=== PATIENT | male | born 1940 | race Caucasian/White ===

== ENCOUNTER 2020-07-02 08:10 | Inpatient (IN) | payer MEDICARE ==
[2020-07-02 09:15] LABS: Hemoglobin 12.4 g/dL (14.0-18.0); Mean Corpuscular HGB CONC 34.9 g/dL (32.0-36.0); Mean Corpuscular Hemoglobin 31.1 pg (27.0-31.0); Mean Corpuscular Volume 89.1 fL (78.0-98.0); Mean Platelet Volume 8.2 fL (7.4-10.4); Platelet Count 232 thou/uL (130-400); Red Blood Cell (RBC) Count 3.98 mill/uL (4.70-6.10); White Blood Cell (WBC) Count 31.2 thou/uL (4.8-10.8)
[2020-07-02 09:22] LABS: PTT 60.1 sec (22.9-36.1)
[2020-07-02 09:23] LABS: Prothrombin Time 100.1 sec (12.0-14.7)
[2020-07-02 09:25] LABS: INR-International Normal Ratio 12.9
[2020-07-02 09:33] LABS: Bacteria/HPF Rare-Few HPF (None Seen); Bilirubin Negative (Negative); Blood, Urine 3+ (Negative); Clarity Turbid (Clear); Glucose, Urine (Dipstick) Greater than 1000 mg/dL (Negative); Ketone, Urine Negative (Negative); Leukocyte 75 Leu/uL (Negative); Nitrite Negative (Negative); Protein, Urine (Dipstick) 50 mg/dL (Neg-Trace); RBC/HPF Greater than 50 HPF (0-3); Specific Gravity, Urine 1.018 (1.002-1.036); Squamous Epithelial 0-3 HPF (0-3); Urobilinogen Normal mg/dL (Less than 2)
[2020-07-02 09:35] LABS: Acetaminophen Less than 6.0 mcg/mL (10.0-30.0); Alcohol Less than 10 mg/dL (Less than 10); Salicylate Less than 8.0 mg/dL (15.0-30.0)
[2020-07-02 09:36] LABS: Band 25 % (5-11); Lymphocytes 1 % (21-51); MDiff Complete? YES; Monocytes 5 % (0-10); Neutrophil 68 % (42-75); Platelet Morphology Comment Appears Adequate; RBC Morphology Normal; Reactive Lymphocytes 1 % (0-10)
[2020-07-02 09:47] LABS: SARS-CoV-2 NAA Rapid Test Not Detected (NotDetected)
[2020-07-02 09:50] LABS: ALT (SGPT) 28 U/L (8-55); AST (SGOT) 22 U/L (5-34); Albumin 3.4 g/dL (3.4-4.8); Alkaline Phosphatase 65 U/L (40-110); BUN (Urea Nitrogen) 97 mg/dL (8.4-25.7); Bilirubin, Total 0.7 mg/dL (0.2-1.2); Calc. Creatinine Clearance 0 mL/min (70-130); Carbon Dioxide 18 mmol/L (23-31); Chloride 96 mmol/L (98-107); Globulin 2.6 g/dL (2.4-3.5); Magnesium 1.9 mg/dL (1.6-2.6); Sodium 129 mmol/L (136-145)
[2020-07-02 09:56] LABS: Glucose 566 mg/dL (83-110)
[2020-07-02] MEDS ORDERED: Levofloxacin 500 mg/D5W 100 ml Premix Bag ONE (10:05)
[2020-07-02 10:06] LABS: Actual Bicarbonate (HCO3v) 21 mEq/L (22-28); Analyzer IN Cardio ER; Base Excess -5.7 mEq/L (-2.0 to +3.0); Calcium, Ionized (venous) 1.16 mmol/L (1.16-1.32); Chloride (VBG) 96 mmol/L (98-106); Hemoglobin (Hb) 13.5 g/dL (12.6-17.4); Potassium (VBG) 4.98 mmol/L (3.70-5.30); Sodium 126.9 mmol/L (133-146); pH (venous) 7.28 (7.32-7.43)
[2020-07-02] MEDS ORDERED: Phytonadione 10 MG/ML AMP PO SCH (11:00)
[2020-07-02] MEDS ORDERED: Ondansetron PF 4 MG/2 ML Vial ONE (11:19)
[2020-07-02] MEDS ORDERED: Phytonadione 10 MG/ML AMP ONE (11:20)
[2020-07-02] MEDS ORDERED: Norepinephrine 8 MG/0.9% NS 0 ML ONE (11:44)
[2020-07-02 12:06] LABS: Lactic Acid 2.5 mmol/L (0.5-2.2)
[2020-07-02 12:48] LABS: CKMB 7.2 ng/mL (0-6.6)
[2020-07-02] MEDS ORDERED: Albumin 25% 25 GM/100 ML BOT IVPB SCH (13:00)
[2020-07-02] MEDS ORDERED: Bisacodyl 10 MG SUPP PR PRN (13:09)
[2020-07-02] MEDS ORDERED: Norepinephrine 8 MG/0.9% NS 250 ML IVPB PRN (13:09)
[2020-07-02] MEDS ORDERED: Calcium Carbonate 500 MG ChewTAB PO PRN (13:09)
[2020-07-02] MEDS ORDERED: Vancomycin HCl 1 GM in Sodium Chloride 0.9% 250 ML 300 ML IVPB SCH (13:09)
[2020-07-02] MEDS ORDERED: Dextrose 5% in Water 1,000 ML IV PRN (13:09)
[2020-07-02] MEDS ORDERED: Dextrose 50% Abboject 50 ML SYRINGE SLOW IVP PRN (13:09)
[2020-07-02] MEDS ORDERED: Acetaminophen 650 MG Suppository PR PRN (13:09)
[2020-07-02] MEDS ORDERED: Fleet Enema 133 ML BOT PR SCH (13:30)
[2020-07-02] MEDS: Ondansetron PF 4 MG/2 ML Vial IVP PRN (13:59)
[2020-07-02] MEDS ORDERED: PHARMACY TO DOSE VANCOMYCIN IVPB PRN (14:14)
[2020-07-02] MEDS ORDERED: Phytonadione 10 MG in Sodium Chloride 0.9% 50 ML IVPB SCH (14:15)
[2020-07-02] MEDS ORDERED: HUM PROTHROMBIN CPLX(PCC)4FACT 1,000 UNIT, Human Prothrombin Complx(PCC) 500 UNIT in Ad... IV SCH (14:15)
[2020-07-02] MEDS ORDERED: HUM PROTHROMBIN CPLX IV SCH (14:30)
[2020-07-02] MEDS ORDERED: [UNRECOGNIZED DRUG - OTHER] IV SCH (14:30)
[2020-07-02] MEDS ORDERED: HUMAN PROTHROMBIN COMPLX IV SCH (14:30)
[2020-07-02] MEDS: Lactated Ringer's 1,000 ML IV SCH ×2 (14:53→18:23)
[2020-07-02] MEDS ORDERED: Vancomycin 1.5 GRAM/300 ML BAG 1.5 GM in Premix Bag 1 BAG IVPB SCH ×2 (15:00→16:00)
[2020-07-02] MEDS: HumaLOG 300 UNITS/3 ML VIAL SC PRN ×2 (15:40→21:45)
[2020-07-02] MEDS: Bisacodyl 10 MG SUPP PR SCH ×2 (16:00→21:30)
[2020-07-02] MEDS: Albumin 25% 25 GM/100 ML BOT IVPB SCH ×2 (16:00→19:51)
[2020-07-02 16:55] LABS: INR-International Normal Ratio 1.9; PTT 35.3 sec (22.9-36.1); Prothrombin Time 21.7 sec (12.0-14.7)
[2020-07-02 17:03] LABS: Lactic Acid 1.4 mmol/L (0.5-2.2)
[2020-07-02] MEDS: Pantoprazole 40 MG VIAL IVP SCH (19:51)
[2020-07-02] MEDS: Lantus 1000 UNITS/10 ML VIAL SC SCH (21:44)
[2020-07-03] MEDS: Albumin 25% 25 GM/100 ML BOT IVPB SCH ×3 (01:48→14:48)
[2020-07-03] MEDS: Lactated Ringer's 1,000 ML IV SCH ×2 (02:26→08:57)
[2020-07-03] MEDS: Cefepime 1 GM in Sodium Chloride 0.9% 100 ML IVPB SCH (03:30)
[2020-07-03 04:06] LABS: #Eosinphils 0.1 thou/uL (0.0-0.7); #Lymphocytes 0.7 thou/uL (1.20-3.40); #Neutrophils 18.7 thou/uL (1.40-6.50); %Eosinophils 0.7 % (0.0-10.0); %Lymphocytes 3.3 % (21.0-51.0); Mean Corpuscular HGB CONC 35.7 g/dL (32.0-36.0); Mean Corpuscular Hemoglobin 31.6 pg (27.0-31.0); Mean Corpuscular Volume 88.3 fL (78.0-98.0); Mean Platelet Volume 7.8 fL (7.4-10.4); Platelet Count 179 thou/uL (130-400); Red Blood Cell (RBC) Count 2.86 mill/uL (4.70-6.10); White Blood Cell (WBC) Count 20.5 thou/uL (4.8-10.8)
[2020-07-03 04:08] LABS: INR-International Normal Ratio 1.5; PTT 35.7 sec (22.9-36.1); Prothrombin Time 18.6 sec (12.0-14.7)
[2020-07-03 04:21] LABS: ALT (SGPT) 24 U/L (8-55); AST (SGOT) 62 U/L (5-34); Albumin 3.8 g/dL (3.4-4.8); Alkaline Phosphatase 44 U/L (40-110); Anion Gap 17 mmol/L (10-20); BUN (Urea Nitrogen) 82 mg/dL (8.4-25.7); Bilirubin, Total 1.3 mg/dL (0.2-1.2); Calc. Creatinine Clearance 29 mL/min (70-130); Calcium 9.6 mg/dL (7.8-10.44); Carbon Dioxide 20 mmol/L (23-31); Chloride 103 mmol/L (98-107); Globulin 2.1 g/dL (2.4-3.5); Glucose 210 mg/dL (83-110); Potassium 4.2 mmol/L (3.5-5.1); Protein, Total 5.9 g/dL (5.8-8.1); Sodium 136 mmol/L (136-145)
[2020-07-03] MEDS: HumaLOG 300 UNITS/3 ML VIAL SC PRN ×4 (04:25→21:13)
[2020-07-03] MEDS: Bisacodyl 10 MG SUPP PR SCH ×3 (05:37→21:36)
[2020-07-03] MEDS ORDERED: Magnesium 2 GM/50 ML 2 GM in Premix Bag 1 BAG IVPB SCH (05:45)
[2020-07-03] MEDS ORDERED: EPINEPHrine 1 MG/ML AMP ONE (08:42)
[2020-07-03] MEDS ORDERED: EPINEPHrine 1 MG/10 ML Abboject SYRINGE ONE (08:42)
[2020-07-03] MEDS: Pantoprazole 40 MG VIAL IVP SCH ×2 (08:56→21:08)
[2020-07-03] MEDS: Lantus 1000 UNITS/10 ML VIAL SC SCH ×2 (08:58→21:09)
[2020-07-03] MEDS: Acetaminophen 325 MG TAB PO PRN (08:58)
[2020-07-03] MEDS: Polyethylene Glycol 3350 17 GM Packet PO SCH (08:58)
[2020-07-03] MEDS: Senokot S 8.6-50 MG TAB PO PRN ×2 (08:59→21:08)
[2020-07-03] MEDS: Ondansetron PF 4 MG/2 ML Vial IVP PRN ×2 (11:21→17:50)
[2020-07-03] MEDS ORDERED: Vancomycin 1.5 GRAM/300 ML BAG 1.5 GM in Premix Bag 1 BAG IVPB SCH (19:00)
[2020-07-04] MEDS: Ondansetron PF 4 MG/2 ML Vial IVP PRN ×2 (00:09→08:13)
[2020-07-04] MEDS: Lactated Ringer's 1,000 ML IV SCH ×2 (00:10→08:55)
[2020-07-04 04:12] LABS: #Eosinphils 0.1 thou/uL (0.0-0.7); #Lymphocytes 0.5 thou/uL (1.20-3.40); #Neutrophils 14.8 thou/uL (1.40-6.50); %Basophils 0.1 % (0.0-1.0); %Eosinophils 0.5 % (0.0-10.0); %Monocytes 6.1 % (0.0-10.0); %Neutrophils 90.3 % (42.0-75.0); Hemoglobin 9.1 g/dL (14.0-18.0); Mean Corpuscular HGB CONC 34.6 g/dL (32.0-36.0); Mean Corpuscular Hemoglobin 31.3 pg (27.0-31.0); Mean Corpuscular Volume 90.5 fL (78.0-98.0); Platelet Count 189 thou/uL (130-400); RBC Distribution Width 12.3 % (11.5-14.5); White Blood Cell (WBC) Count 16.4 thou/uL (4.8-10.8)
[2020-07-04 04:15] LABS: INR-International Normal Ratio 1.4; PTT 37.1 sec (22.9-36.1); Prothrombin Time 17.6 sec (12.0-14.7)
[2020-07-04 04:33] LABS: ALT (SGPT) 22 U/L (8-55); AST (SGOT) 49 U/L (5-34); Albumin 3.8 g/dL (3.4-4.8); Alkaline Phosphatase 46 U/L (40-110); Anion Gap 16 mmol/L (10-20); BUN (Urea Nitrogen) 66 mg/dL (8.4-25.7); Bilirubin, Total 1.3 mg/dL (0.2-1.2); Calc. Creatinine Clearance 32 mL/min (70-130); Calcium 10.4 mg/dL (7.8-10.44); Carbon Dioxide 22 mmol/L (23-31); Chloride 105 mmol/L (98-107); Globulin 2.4 g/dL (2.4-3.5); Glucose 161 mg/dL (83-110); Potassium 3.9 mmol/L (3.5-5.1); Protein, Total 6.2 g/dL (5.8-8.1); Sodium 139 mmol/L (136-145)
[2020-07-04] MEDS: Cefepime 1 GM in Sodium Chloride 0.9% 100 ML IVPB SCH (04:53)
[2020-07-04] MEDS: Bisacodyl 10 MG SUPP PR SCH ×2 (06:57→13:47)
[2020-07-04] MEDS ORDERED: Temazepam 15 MG CAP PO PRN (07:44)
[2020-07-04] MEDS ORDERED: Acetaminophen 325 MG TAB PO PRN (07:45)
[2020-07-04] MEDS ORDERED: Thiamine HCl 200 MG/2 ML VIAL SLOW IVP SCH (08:00)
[2020-07-04] MEDS: Acetaminophen 325 MG TAB PO PRN (08:12)
[2020-07-04] MEDS: Metoprolol Tartrate 25 MG TAB PO SCH ×2 (08:12→20:11)
[2020-07-04] MEDS: Pantoprazole 40 MG VIAL IVP SCH ×2 (08:13→20:11)
[2020-07-04] MEDS: Thiamine HCl 200 MG/2 ML VIAL SLOW IVP SCH (08:25)
[2020-07-04] MEDS: Lantus 1000 UNITS/10 ML VIAL SC SCH ×2 (08:56→21:08)
[2020-07-04] MEDS: Polyethylene Glycol 3350 17 GM Packet PO SCH (08:56)
[2020-07-04] MEDS ORDERED: Enoxaparin Sodium 100 MG/ML SYRINGE SC SCH (09:45)
[2020-07-04] MEDS ORDERED: PROPOFOL 200 MG/20 ML VIAL ONE (11:30)
[2020-07-04] MEDS: HumaLOG 300 UNITS/3 ML VIAL SC PRN ×2 (12:32→16:24)
[2020-07-04] MEDS: Warfarin Sodium 2.5 MG TAB PO SCH (18:17)
[2020-07-04 19:49] LABS: Vancomycin, Random 18.2 ug/mL (See Comment)
[2020-07-04] MEDS ORDERED: Vancomycin 1 GM in Premix Bag 1 BAG IVPB SCH (20:00)
[2020-07-04] MEDS: Senokot S 8.6-50 MG TAB PO PRN (20:11)
[2020-07-04] MEDS: Metoprolol Tartrate 50 MG TAB PO SCH (20:52)
[2020-07-04] MEDS: Diltiazem 125 MG in Sodium Chloride 0.9% 100 ML IVPB SCH (20:59)
[2020-07-05] MEDS: Cefepime 1 GM in Sodium Chloride 0.9% 100 ML IVPB SCH (03:15)
[2020-07-05] MEDS: Bisacodyl 10 MG SUPP PR SCH ×4 (03:27→22:30)
[2020-07-05 03:44] LABS: #Eosinphils 0.2 thou/uL (0.0-0.7); #Lymphocytes 0.7 thou/uL (1.20-3.40); #Monocytes 0.9 thou/uL (0.11-0.59); #Neutrophils 12.5 thou/uL (1.40-6.50); %Basophils 0.1 % (0.0-1.0); %Eosinophils 1.1 % (0.0-10.0); %Lymphocytes 4.5 % (21.0-51.0); %Monocytes 6.3 % (0.0-10.0); %Neutrophils 87.9 % (42.0-75.0); Hemoglobin 8.7 g/dL (14.0-18.0); Mean Corpuscular HGB CONC 34.1 g/dL (32.0-36.0); Mean Corpuscular Hemoglobin 31.1 pg (27.0-31.0); Mean Corpuscular Volume 91.3 fL (78.0-98.0); Mean Platelet Volume 8.1 fL (7.4-10.4); Platelet Count 182 thou/uL (130-400); RBC Distribution Width 12.2 % (11.5-14.5); Red Blood Cell (RBC) Count 2.79 mill/uL (4.70-6.10); White Blood Cell (WBC) Count 14.3 thou/uL (4.8-10.8)
[2020-07-05 04:04] LABS: ALT (SGPT) 18 U/L (8-55); AST (SGOT) 28 U/L (5-34); Albumin 3.3 g/dL (3.4-4.8); Alkaline Phosphatase 49 U/L (40-110); Anion Gap 12 mmol/L (10-20); BUN (Urea Nitrogen) 57 mg/dL (8.4-25.7); Calc. Creatinine Clearance 35 mL/min (70-130); Calcium 10.2 mg/dL (7.8-10.44); Carbon Dioxide 24 mmol/L (23-31); Chloride 109 mmol/L (98-107); Globulin 2.5 g/dL (2.4-3.5); Glucose 134 mg/dL (83-110); Potassium 3.8 mmol/L (3.5-5.1); Protein, Total 5.8 g/dL (5.8-8.1); Sodium 141 mmol/L (136-145)
[2020-07-05 04:16] LABS: INR-International Normal Ratio 1.7; Prothrombin Time 19.9 sec (12.0-14.7)
[2020-07-05 04:17] LABS: PTT 54.1 sec (22.9-36.1)
[2020-07-05] MEDS: Pantoprazole 40 MG VIAL IVP SCH ×2 (08:03→20:46)
[2020-07-05] MEDS: Lantus 1000 UNITS/10 ML VIAL SC SCH ×2 (08:03→21:03)
[2020-07-05] MEDS: Metoprolol Tartrate 50 MG TAB PO SCH ×2 (08:03→20:45)
[2020-07-05] MEDS: Polyethylene Glycol 3350 17 GM Packet PO SCH (08:04)
[2020-07-05] MEDS: Thiamine HCl 200 MG/2 ML VIAL SLOW IVP SCH (08:46)
[2020-07-05] MEDS ORDERED: Enoxaparin Sodium 100 MG/ML SYRINGE SC SCH (09:00)
[2020-07-05] MEDS: HumaLOG 300 UNITS/3 ML VIAL SC PRN ×3 (10:04→21:06)
[2020-07-05] MEDS ORDERED: Dextrose 50% Abboject 50 ML SYRINGE ONE (12:35)
[2020-07-05] MEDS ORDERED: Sodium Chloride 0.65% Nasal 44 ML BOT EA NARE PRN (14:36)
[2020-07-05] MEDS: Fluticasone Propionate Nasal Spray 16 gm Bottle NASAL SCH (15:14)
[2020-07-05] MEDS: Diltiazem 125 MG in Sodium Chloride 0.9% 100 ML IVPB SCH (16:33)
[2020-07-05] MEDS: Warfarin Sodium 2.5 MG TAB PO SCH (17:08)
[2020-07-05 19:23] LABS: Vancomycin, Random 19.3 ug/mL (See Comment)
[2020-07-05] MEDS ORDERED: Vancomycin 1 GM in Premix Bag 1 BAG IVPB SCH (22:00)
[2020-07-06] MEDS: Cefepime 1 GM in Sodium Chloride 0.9% 100 ML IVPB SCH (04:15)
[2020-07-06 04:20] LABS: #Eosinphils 0.2 thou/uL (0.0-0.7); #Lymphocytes 0.8 thou/uL (1.20-3.40); #Monocytes 0.9 thou/uL (0.11-0.59); #Neutrophils 11.1 thou/uL (1.40-6.50); %Basophils 0.1 % (0.0-1.0); %Eosinophils 1.3 % (0.0-10.0); %Lymphocytes 5.8 % (21.0-51.0); %Monocytes 6.7 % (0.0-10.0); %Neutrophils 86.1 % (42.0-75.0); Hemoglobin 8.7 g/dL (14.0-18.0); Mean Corpuscular HGB CONC 32.4 g/dL (32.0-36.0); Mean Corpuscular Hemoglobin 29.7 pg (27.0-31.0); Mean Corpuscular Volume 91.6 fL (78.0-98.0); Mean Platelet Volume 7.9 fL (7.4-10.4); Platelet Count 203 thou/uL (130-400); RBC Distribution Width 12.3 % (11.5-14.5); Red Blood Cell (RBC) Count 2.93 mill/uL (4.70-6.10); White Blood Cell (WBC) Count 12.9 thou/uL (4.8-10.8)
[2020-07-06 04:26] LABS: Prothrombin Time 22.6 sec (12.0-14.7)
[2020-07-06] MEDS: HumaLOG 300 UNITS/3 ML VIAL SC PRN ×3 (04:26→20:57)
[2020-07-06 04:27] LABS: PTT 55.8 sec (22.9-36.1)
[2020-07-06 04:42] LABS: ALT (SGPT) 19 U/L (8-55); AST (SGOT) 22 U/L (5-34); Albumin 3.2 g/dL (3.4-4.8); Alkaline Phosphatase 49 U/L (40-110); Anion Gap 14 mmol/L (10-20); BUN (Urea Nitrogen) 56 mg/dL (8.4-25.7); Bilirubin, Total 0.9 mg/dL (0.2-1.2); Calc. Creatinine Clearance 37 mL/min (70-130); Calcium 9.8 mg/dL (7.8-10.44); Carbon Dioxide 24 mmol/L (23-31); Chloride 103 mmol/L (98-107); Globulin 2.5 g/dL (2.4-3.5); Glucose 227 mg/dL (83-110); Potassium 3.7 mmol/L (3.5-5.1); Protein, Total 5.7 g/dL (5.8-8.1); Sodium 137 mmol/L (136-145)
[2020-07-06] MEDS: Bisacodyl 10 MG SUPP PR SCH ×3 (06:57→20:55)
[2020-07-06] MEDS: Polyethylene Glycol 3350 17 GM Packet PO SCH (08:29)
[2020-07-06] MEDS: Lantus 1000 UNITS/10 ML VIAL SC SCH ×2 (08:30→20:56)
[2020-07-06] MEDS: Pantoprazole 40 MG VIAL IVP SCH ×2 (08:30→20:58)
[2020-07-06] MEDS: Metoprolol Tartrate 50 MG TAB PO SCH ×2 (08:30→20:55)
[2020-07-06] MEDS: Thiamine HCl 200 MG/2 ML VIAL SLOW IVP SCH (08:31)
[2020-07-06] MEDS ORDERED: Metoprolol Tartrate 25 MG TAB PO SCH (11:00)
[2020-07-06] MEDS: Diltiazem 125 MG in Sodium Chloride 0.9% 100 ML IVPB SCH (11:18)
[2020-07-06] MEDS: Fluticasone Propionate Nasal Spray 16 gm Bottle NASAL SCH (16:19)
[2020-07-06] MEDS: Warfarin Sodium 2.5 MG TAB PO SCH (17:04)
[2020-07-07 00:05] LABS: Vancomycin, Random 20.7 ug/mL (See Comment)
[2020-07-07] MEDS ORDERED: Vancomycin HCl 750 MG in Sodium Chloride 0.9% 250 ML 250 ML IVPB SCH (03:00)
[2020-07-07 04:11] LABS: INR-International Normal Ratio 2.2; Prothrombin Time 25.2 sec (12.0-14.7)
[2020-07-07 04:12] LABS: #Eosinphils 0.3 thou/uL (0.0-0.7); #Lymphocytes 0.7 thou/uL (1.20-3.40); #Monocytes 0.8 thou/uL (0.11-0.59); %Eosinophils 2.5 % (0.0-10.0); %Lymphocytes 6.9 % (21.0-51.0); %Monocytes 7.4 % (0.0-10.0); %Neutrophils 83.2 % (42.0-75.0); Hemoglobin 8.7 g/dL (14.0-18.0); Mean Corpuscular HGB CONC 32.5 g/dL (32.0-36.0); Mean Corpuscular Hemoglobin 29.7 pg (27.0-31.0); Mean Corpuscular Volume 91.3 fL (78.0-98.0); Mean Platelet Volume 7.9 fL (7.4-10.4); PTT 55.9 sec (22.9-36.1); Platelet Count 217 thou/uL (130-400); RBC Distribution Width 12.3 % (11.5-14.5); Red Blood Cell (RBC) Count 2.92 mill/uL (4.70-6.10); White Blood Cell (WBC) Count 10.8 thou/uL (4.8-10.8)
[2020-07-07 04:27] LABS: ALT (SGPT) 18 U/L (8-55); AST (SGOT) 23 U/L (5-34); Albumin 3.1 g/dL (3.4-4.8); Alkaline Phosphatase 49 U/L (40-110); Anion Gap 13 mmol/L (10-20); BUN (Urea Nitrogen) 50 mg/dL (8.4-25.7); Bilirubin, Total 0.7 mg/dL (0.2-1.2); Calc. Creatinine Clearance 42 mL/min (70-130); Calcium 9.4 mg/dL (7.8-10.44); Carbon Dioxide 25 mmol/L (23-31); Chloride 102 mmol/L (98-107); Globulin 2.6 g/dL (2.4-3.5); Glucose 125 mg/dL (83-110); Potassium 3.7 mmol/L (3.5-5.1); Protein, Total 5.7 g/dL (5.8-8.1); Sodium 136 mmol/L (136-145)
[2020-07-07] MEDS: Cefepime 1 GM in Sodium Chloride 0.9% 100 ML IVPB SCH (05:13)
[2020-07-07] MEDS: Bisacodyl 10 MG SUPP PR SCH ×3 (05:19→21:46)
[2020-07-07] MEDS: Metoprolol Tartrate 50 MG TAB PO SCH ×2 (09:51→21:44)
[2020-07-07] MEDS: Polyethylene Glycol 3350 17 GM Packet PO SCH (09:51)
[2020-07-07] MEDS: Lantus 1000 UNITS/10 ML VIAL SC SCH ×2 (09:51→21:44)
[2020-07-07] MEDS: Pantoprazole 40 MG VIAL IVP SCH ×2 (09:52→21:46)
[2020-07-07] MEDS: Thiamine HCl 200 MG/2 ML VIAL SLOW IVP SCH (09:52)
[2020-07-07 10:50] VITALS: BMI 34.0
[2020-07-07] MEDS: HumaLOG 300 UNITS/3 ML VIAL SC PRN ×3 (11:49→21:43)
[2020-07-07] MEDS: Fluticasone Propionate Nasal Spray 16 gm Bottle NASAL SCH (15:46)
[2020-07-07] MEDS: Warfarin Sodium 2.5 MG TAB PO SCH (17:49)
[2020-07-07] MEDS: Guaifenesin DM 100-10/5 ML UDCUP PO PRN (21:43)
[2020-07-07] MEDS ORDERED: Benzonatate 100 MG CAP PO PRN (21:59)
[2020-07-08] MEDS: Cefepime 1 GM in Sodium Chloride 0.9% 100 ML IVPB SCH (03:35)
[2020-07-08] MEDS: Bisacodyl 10 MG SUPP PR SCH ×3 (03:36→21:58)
[2020-07-08] MEDS: Guaifenesin DM 100-10/5 ML UDCUP PO PRN ×2 (03:54→16:43)
[2020-07-08 04:27] LABS: INR-International Normal Ratio 2.4; Prothrombin Time 26.7 sec (12.0-14.7)
[2020-07-08 04:43] LABS: ALT (SGPT) 23 U/L (8-55); AST (SGOT) 33 U/L (5-34); Albumin 3.2 g/dL (3.4-4.8); Alkaline Phosphatase 54 U/L (40-110); Anion Gap 11 mmol/L (10-20); BUN (Urea Nitrogen) 43 mg/dL (8.4-25.7); Bilirubin, Total 0.7 mg/dL (0.2-1.2); Calc. Creatinine Clearance 44 mL/min (70-130); Calcium 9.5 mg/dL (7.8-10.44); Carbon Dioxide 28 mmol/L (23-31); Chloride 101 mmol/L (98-107); Globulin 2.7 g/dL (2.4-3.5); Glucose 114 mg/dL (83-110); Protein, Total 5.9 g/dL (5.8-8.1); Sodium 136 mmol/L (136-145)
[2020-07-08] MEDS ORDERED: Vancomycin HCl 750 MG in Sodium Chloride 0.9% 250 ML 250 ML IVPB SCH (05:00)
[2020-07-08 05:04] LABS: Band 4 % (5-11); Eosinophils 3 % (0-10); Hemoglobin 9.3 g/dL (14.0-18.0); Lymphocytes 5 % (21-51); MDiff Complete? YES; Mean Corpuscular HGB CONC 33.5 g/dL (32.0-36.0); Mean Corpuscular Hemoglobin 30.6 pg (27.0-31.0); Mean Corpuscular Volume 91.5 fL (78.0-98.0); Mean Platelet Volume 7.7 fL (7.4-10.4); Metamyelocyte 1 % (0-0); Monocytes 8 % (0-10); Myelocyte 2 % (0-0); Neutrophil 77 % (42-75); Platelet Count 230 thou/uL (130-400); RBC Distribution Width 12.3 % (11.5-14.5); Red Blood Cell (RBC) Count 3.02 mill/uL (4.70-6.10); White Blood Cell (WBC) Count 11.9 thou/uL (4.8-10.8)
[2020-07-08] MEDS: Polyethylene Glycol 3350 17 GM Packet PO SCH (08:33)
[2020-07-08] MEDS: Lantus 1000 UNITS/10 ML VIAL SC SCH ×2 (08:33→23:36)
[2020-07-08] MEDS: Metoprolol Tartrate 50 MG TAB PO SCH ×2 (08:33→16:44)
[2020-07-08] MEDS: Pantoprazole 40 MG VIAL IVP SCH ×2 (08:33→21:56)
[2020-07-08] MEDS: Thiamine HCl 200 MG/2 ML VIAL SLOW IVP SCH (08:39)
[2020-07-08] MEDS: HumaLOG 300 UNITS/3 ML VIAL SC PRN (16:44)
[2020-07-08] MEDS: Warfarin Sodium 2 MG TAB PO SCH (16:44)
[2020-07-08] MEDS: Fluticasone Propionate Nasal Spray 16 gm Bottle NASAL SCH (16:48)
[2020-07-09] MEDS: Cefepime 1 GM in Sodium Chloride 0.9% 100 ML IVPB SCH (04:12)
[2020-07-09 05:10] LABS: Hemoglobin 9.9 g/dL (14.0-18.0); Mean Corpuscular HGB CONC 33.7 g/dL (32.0-36.0); Mean Corpuscular Hemoglobin 30.8 pg (27.0-31.0); Mean Corpuscular Volume 91.5 fL (78.0-98.0); Mean Platelet Volume 7.5 fL (7.4-10.4); Platelet Count 231 thou/uL (130-400); RBC Distribution Width 12.5 % (11.5-14.5); Red Blood Cell (RBC) Count 3.21 mill/uL (4.70-6.10); White Blood Cell (WBC) Count 13.4 thou/uL (4.8-10.8)
[2020-07-09 05:16] LABS: Anion Gap 12 mmol/L (10-20); BUN (Urea Nitrogen) 37 mg/dL (8.4-25.7); Calc. Creatinine Clearance 47 mL/min (70-130); Calcium 9.5 mg/dL (7.8-10.44); Carbon Dioxide 23 mmol/L (23-31); Chloride 103 mmol/L (98-107); Glucose 105 mg/dL (83-110); Potassium 3.6 mmol/L (3.5-5.1); Sodium 134 mmol/L (136-145)
[2020-07-09] MEDS: Metoprolol Tartrate 50 MG TAB PO SCH ×2 (05:54→17:48)
[2020-07-09] MEDS: Bisacodyl 10 MG SUPP PR SCH ×3 (05:54→20:01)
[2020-07-09 06:38] LABS: Band 12 % (5-11); Eosinophils 1 % (0-10); Lymphocytes 11 % (21-51); MDiff Complete? YES; Monocytes 1 % (0-10); Myelocyte 2 % (0-0); Neutrophil 73 % (42-75)
[2020-07-09] MEDS ORDERED: Vancomycin 1.5 GRAM/300 ML BAG 1.5 GM in Premix Bag 1 BAG IVPB SCH (09:00)
[2020-07-09] MEDS: Thiamine HCl 200 MG/2 ML VIAL SLOW IVP SCH (09:30)
[2020-07-09] MEDS: Lantus 1000 UNITS/10 ML VIAL SC SCH ×2 (09:30→20:01)
[2020-07-09] MEDS: Pantoprazole 40 MG VIAL IVP SCH ×2 (09:30→20:01)
[2020-07-09] MEDS: Polyethylene Glycol 3350 17 GM Packet PO SCH (09:30)
[2020-07-09] MEDS: Fluticasone Propionate Nasal Spray 16 gm Bottle NASAL SCH (15:35)
[2020-07-09] MEDS: HumaLOG 300 UNITS/3 ML VIAL SC PRN ×2 (17:48→20:00)
[2020-07-09] MEDS: Warfarin Sodium 2 MG TAB PO SCH (17:49)
[2020-07-09] MEDS: Guaifenesin DM 100-10/5 ML UDCUP PO PRN (20:01)
[2020-07-09] MEDS: Amoxicillin/Potassium Clav 875 MG TAB PO SCH (20:49)
[2020-07-10] MEDS: Bisacodyl 10 MG SUPP PR SCH (04:49)
[2020-07-10 05:02] LABS: INR-International Normal Ratio 2.5; Prothrombin Time 27.4 sec (12.0-14.7)
[2020-07-10 05:23] LABS: Anion Gap 13 mmol/L (10-20); BUN (Urea Nitrogen) 38 mg/dL (8.4-25.7); Calc. Creatinine Clearance 46 mL/min (70-130); Carbon Dioxide 24 mmol/L (23-31); Chloride 103 mmol/L (98-107); Glucose 137 mg/dL (83-110); Sodium 136 mmol/L (136-145)
[2020-07-10 05:24] LABS: Band 1 % (5-11); Eosinophils 4 % (0-10); Hemoglobin 8.9 g/dL (14.0-18.0); Lymphocytes 8 % (21-51); MDiff Complete? YES; Mean Corpuscular HGB CONC 33.6 g/dL (32.0-36.0); Mean Corpuscular Hemoglobin 30.9 pg (27.0-31.0); Mean Platelet Volume 7.5 fL (7.4-10.4); Monocytes 5 % (0-10); Neutrophil 82 % (42-75); Platelet Count 233 thou/uL (130-400); RBC Distribution Width 12.8 % (11.5-14.5); Red Blood Cell (RBC) Count 2.89 mill/uL (4.70-6.10)
[2020-07-10] MEDS: Amoxicillin/Potassium Clav 875 MG TAB PO SCH (08:22)
[2020-07-10] MEDS: Lantus 1000 UNITS/10 ML VIAL SC SCH (08:22)
[2020-07-10] MEDS: Guaifenesin DM 100-10/5 ML UDCUP PO PRN (08:23)
[2020-07-10] MEDS: Polyethylene Glycol 3350 17 GM Packet PO SCH (08:28)
[2020-07-10] MEDS ORDERED: Thiamine 100 MG TAB PO SCH (09:00)
[2020-07-10] MEDS ORDERED: Metoprolol Tartrate 50 MG TAB PO SCH (09:00)
[2020-07-10] MEDS ORDERED: Potassium Chloride 20 MEQ TAB PO SCH (09:30)
[2020-07-10] MEDS ORDERED: Furosemide 20 MG/2 ML VIAL SLOW IVP SCH (09:30)
[2020-07-10 11:11] VITALS: BP 167/78; TEMP 98.5
== END 2020-07-10 14:25 | disposition home or self-care (01) | DRG 871 ==
LOC: ERS 08:10 → CCU 11:11 → 2NO 07-06 16:44
PROVIDERS: ADMIT Internal Medicine; ATTEND Internal Medicine
PROC: 3E033XZ Introduction of Vasopressor into Peripheral Vein, Percutaneous Approach (ICD-10-PCS; principal; 2020-07-02)
PROC: 06HY33Z Insertion of Infusion Device into Lower Vein, Percutaneous Approach (ICD-10-PCS; 2020-07-02)
PROC: 0DJ08ZZ Inspection of Upper Intestinal Tract, Via Natural or Artificial Opening Endoscopic (ICD-10-PCS; 2020-07-04)
DX: A41.81 Sepsis due to Enterococcus (principal); J18.9 Pneumonia, unspecified organism; R65.21 Severe sepsis with septic shock; K21.01 Gastro-esophageal reflux disease with esophagitis, with bleeding; Z20.822 Contact with and (suspected) exposure to COVID-19; J96.01 Acute respiratory failure with hypoxia; N17.9 Acute kidney failure, unspecified; D62 Acute posthemorrhagic anemia; I48.11 Longstanding persistent atrial fibrillation; N39.0 Urinary tract infection, site not specified; E87.2 Acidosis; N18.4 Chronic kidney disease, stage 4 (severe); D68.32 Hemorrhagic disorder due to extrinsic circulating anticoagulants; I50.32 Chronic diastolic (congestive) heart failure; I13.0 Hypertensive heart and chronic kidney disease with heart failure and stage 1 through stage 4 chronic kidney disease, or unspecified chronic kidney disease; E11.22 Type 2 diabetes mellitus with diabetic chronic kidney disease; N40.0 Benign prostatic hyperplasia without lower urinary tract symptoms; E86.0 Dehydration; E11.65 Type 2 diabetes mellitus with hyperglycemia; E11.649 Type 2 diabetes mellitus with hypoglycemia without coma; K56.41 Fecal impaction; K80.80 Other cholelithiasis without obstruction; E78.5 Hyperlipidemia, unspecified; K21.00 Gastro-esophageal reflux disease with esophagitis, without bleeding; K29.70 Gastritis, unspecified, without bleeding; T45.515A Adverse effect of anticoagulants, initial encounter; R13.10 Dysphagia, unspecified; Z95.2 Presence of prosthetic heart valve; Z88.8 Allergy status to other drugs, medicaments and biological substances; Z82.49 Family history of ischemic heart disease and other diseases of the circulatory system; Z83.49 Family history of other endocrine, nutritional and metabolic diseases; Z68.35 Body mass index [BMI] 35.0-35.9, adult; Z79.899 Other long term (current) drug therapy; Z79.01 Long term (current) use of anticoagulants
CPT/HCPCS: 0240U; 36415; 36416; 36556; 71045; 71250; 74177; 78227; 80048; 80053; 80202; 80307; 81003; 81015; 82010; 82553; 82805; 83605; 83735; 83880; 84145; 84484; 85025; 85610; 85730; 86850; 86900; 86901; 87040; 87077; 87086; 87186; 93005; 93010; 93306; 94640; 96365; 96375; A9537; C9113; C9132; J0692; J1650; J1815; J1940; J1956; J2405; J2704; J3370; J3411; J3430; J3475; J3490; J7050; J7620; P9047